=== PATIENT | female | born 1935 | race Caucasian/White ===

== ENCOUNTER 2024-05-15 06:44 | Day surgery (SDC) | payer MEDICARE, OTHER ==
[2024-05-15] VITALS (9 sets, daily range): BP systolic 109–156; BP diastolic 42–64; PULSE 52–82; RESP 10–12; TEMP 98.2; O2SAT 94–100
[~2024-05-15] VITALS: Ht 157.5 cm; Wt 66.9 kg
[2024-05-15] MEDS ORDERED: OMEG1CAP46 PO (07:42)
[2024-05-15] MEDS ORDERED: OXYB2.5T PO (07:42)
[2024-05-15] MEDS ORDERED: ASPI-611 PO (07:42)
[2024-05-15] MEDS ORDERED: AMLO5TAB16 PO (07:42)
[2024-05-15] MEDS ORDERED: CETI10TA14 PO (07:42)
[2024-05-15] MEDS ORDERED: VITA-288 PO (07:42)
[2024-05-15] MEDS ORDERED: CHOL50CA2 PO (07:42)
[2024-05-15] MEDS ORDERED: LEVO125T8 PO (07:42)
[2024-05-15] MEDS ORDERED: CYAN-34 PO (07:42)
[2024-05-15] MEDS ORDERED: MAGN250T11 PO (07:42)
[2024-05-15] MEDS ORDERED: FOLI0.4T14 PO (07:42)
[2024-05-15] MEDS ORDERED: ASCO1TAB13 PO (07:42)
[2024-05-15] MEDS ORDERED: CALC-723 PO (07:42)
[2024-05-15] MEDS ORDERED: CALC600T2 PO (07:42)
[2024-05-15] MEDS ORDERED: ESOM40CA PO (07:42)
[2024-05-15] MEDS ORDERED: LOSA100T58 PO (07:42)
[2024-05-15] MEDS ORDERED: VITA-268 PO (07:42)
[2024-05-15] MEDS ORDERED: FAMO40TA58 PO (07:42)
[2024-05-15 07:53] LABS: BASOPHILS % (AUTO) 0.6 % (0-1); EOSINOPHILS # (AUTO) 0.5 X10'3 (0-0.9); EOSINOPHILS % (AUTO) 9.1 % (0-6); HEMATOCRIT 38.5 % (35.0-45.0); HEMOGLOBIN 13.1 g/dl (12.0-16.0); LYMPHOCYTES # (AUTO) 1.5 X10'3 (1.1-4.8); LYMPHOCYTES % (AUTO) 25.1 % (21-51); MEAN CORPUSCULAR HEMOGLOBIN 29.9 PG (27.0-31.0); MEAN PLATELET VOLUME 8.6 FL (7.4-10.4); MONOCYTES # (AUTO) 0.7 X10'3 (0-0.9); MONOCYTES % (AUTO) 11.6 % (2-12); NEUTROPHILS # (AUTO) 3.2 X10'3 (1.8-7.7); NEUTROPHILS % (AUTO) 53.6 % (42-75); PLATELET COUNT 245 X10'3 (140-440); RED BLOOD COUNT 4.37 X10'6 (4.20-5.60); RED CELL DISTRIBUTION WIDTH 13.3 % (11.5-14.5); WHITE BLOOD COUNT 5.9 X10'3 (4.5-11.0)
[2024-05-15 08:01] LABS: PROTHROMBIN TIME 10.4 SECONDS (9.0-12.0)
[2024-05-15] MEDS: normal saline 1,000 ML IV SCH (08:03)
[2024-05-15] MEDS: sodium bicarbonate 1meq/ml syr 150 ML in dextrose 5%-water 1,000 ML IV ONE (08:03)
[2024-05-15] MEDS: diphenhydrAMINE 25mg capsule PO PRN (08:03)
[2024-05-15 08:42] LABS: ALBUMIN 4.1 G/DL (3.4-5.0); ANION GAP 10 (8-16); BLOOD UREA NITROGEN 29 MG/DL (7-18); CALCIUM 9.5 MG/DL (8.5-10.1); CHLORIDE 105 MMOL/L (99-107); CREATININE 1.21 MG/DL (0.40-0.90); GLUCOSE 115 MG/DL (70-104); MAGNESIUM 2.2 MG/DL (1.5-2.4); SODIUM 140 MMOL/L (135-145); TOTAL CARBON DIOXIDE 25.4 MMOL/L (24-32); eCRCL 26 ML/MIN; eGFR 42 ML/MIN
[2024-05-15] MEDS ORDERED: LIDOcaine 1% 30ml preserv. free vial ONE (08:52)
[2024-05-15] MEDS ORDERED: verapamil 2.5 mg/ml inj IV ONE (08:52)
[2024-05-15] MEDS ORDERED: midazolam 1 mg/ML 2ml injection ONE ×3 (08:52→10:33)
[2024-05-15] MEDS ORDERED: iohexol 350 MG/ML 50ML vial IV ONE (08:53)
[2024-05-15] MEDS ORDERED: heparin 1,000unit/ml 10ml vial 10 ML ONE (08:53)
[2024-05-15] MEDS ORDERED: fentaNYL/PF 50MCG/1 ML 2ML syringe ONE ×2 (08:53→10:34)
[2024-05-15] MEDS ORDERED: iohexol 350MG/ML 100ml bottle IV ONE (08:53)
[2024-05-15] MEDS ORDERED: nitroGLYCERIN 500mcg/5mL D5W 5 ML IV ONE (08:58)
[2024-05-15] MEDS ORDERED: HYDROcodone/acetaminophen 5mg/325mg tablet PO PRN (11:25)
[2024-05-15] MEDS ORDERED: ondansetron/PF 4mg/2ml inj IV PRN (11:25)
[2024-05-15] MEDS ORDERED: proCHLORperazine 10 MG/2 ml inj IV PRN (11:25)
[2024-05-15] MEDS ORDERED: HYDROcodone/acetaminophen 10/325mg tab PO PRN (11:25)
== END 2024-05-15 14:35 | disposition home or self-care (01) ==
LOC: SSTAY O 06:44
PROVIDERS: ATTEND Internal Medicine Cardiovascular Disease
DX: I35.0 Nonrheumatic aortic (valve) stenosis (principal); I25.10 Atherosclerotic heart disease of native coronary artery without angina pectoris; R94.31 Abnormal electrocardiogram [ECG] [EKG]; Z88.5 Allergy status to narcotic agent; Z88.8 Allergy status to other drugs, medicaments and biological substances
CPT/HCPCS: 36415; 80048; 83735; 85025; 85610; 93005; 93460; 93571; 99152; 99153; C1751; C1760; C1769; C1894; J1644; J2001; J2250; J3010; J3490; J7030; J7070; Q0163; Q9967; Z7610

== ENCOUNTER 2024-06-15 09:40 | Outpatient (CLI) | payer MEDICARE, OTHER ==
[~2024-06-15 09:40] MED LIST: AMLO5TAB16 PO; ASCO1TAB13 PO; ASPI-611 PO; CALC-723 PO; CALC600T2 PO; CETI10TA14 PO; CHOL50CA2 PO; CYAN-34 PO; ESOM40CA PO; FAMO40TA58 PO; FOLI0.4T14 PO; LEVO125T8 PO; LOSA100T58 PO; MAGN250T11 PO; OMEG1CAP46 PO; OXYB2.5T PO; VITA-268 PO; VITA-288 PO
[2024-06-15 10:22] LABS: BASOPHILS # (AUTO) 0.1 X10'3 (0-0.2); EOSINOPHILS # (AUTO) 0.4 X10'3 (0-0.9); EOSINOPHILS % (AUTO) 7.8 % (0-6); HEMATOCRIT 34.7 % (35.0-45.0); HEMOGLOBIN 11.6 g/dl (12.0-16.0); LYMPHOCYTES # (AUTO) 1.3 X10'3 (1.1-4.8); LYMPHOCYTES % (AUTO) 22.9 % (21-51); MEAN CORPUSCULAR HEMOGLOBIN 29.6 PG (27.0-31.0); MEAN CORPUSCULAR HGB CONC 33.6 g/dL (33.0-36.5); MEAN CORPUSCULAR VOLUME 88.2 FL (78-98); MEAN PLATELET VOLUME 8.3 FL (7.4-10.4); MONOCYTES # (AUTO) 0.6 X10'3 (0-0.9); MONOCYTES % (AUTO) 10.1 % (2-12); NEUTROPHILS # (AUTO) 3.3 X10'3 (1.8-7.7); NEUTROPHILS % (AUTO) 58.2 % (42-75); PLATELET COUNT 246 X10'3 (140-440); RED BLOOD COUNT 3.93 X10'6 (4.20-5.60); RED CELL DISTRIBUTION WIDTH 13.3 % (11.5-14.5); WHITE BLOOD COUNT 5.7 X10'3 (4.5-11.0)
[2024-06-15 10:34] LABS: APTT 25 SECONDS (22-32); PROTHROMBIN TIME 10.4 SECONDS (9.0-12.0)
[2024-06-15 10:45] LABS: ALANINE AMINOTRANSFERASE 20 U/L (12-78); ALBUMIN 3.7 G/DL (3.4-5.0); ALKALINE PHOSPHATASE 75 IU/L (46-116); ANION GAP 6 (8-16); ASPARTATE AMINO TRANSFERASE 13 U/L (10-37); BILIRUBIN,TOTAL 0.3 MG/DL (0.1-1.0); BLOOD UREA NITROGEN 31 MG/DL (7-18); BUN/CREATININE RATIO 30.4 (10.0-20.0); CALCIUM 9.4 MG/DL (8.5-10.1); CHLORIDE 105 MMOL/L (99-107); CREATININE 1.02 MG/DL (0.40-0.90); GLUCOSE 101 MG/DL (70-104); POTASSIUM 4.1 MMOL/L (3.5-5.1); PRO BRAIN NATRIURETIC PEPTIDE 98 PG/ML (0-450); SODIUM 140 MMOL/L (135-145); TOTAL CARBON DIOXIDE 28.6 MMOL/L (24-32); TOTAL PROTEIN 7.4 G/DL (6.4-8.2); eGFR 51 ML/MIN
[2024-06-15] MEDS ORDERED: IODIXANOL 320 MG/ML INFUS..BTL 100ML IV ONE (12:18)
== END 2024-06-15 23:59 | disposition home or self-care (01) ==
LOC: RAD 09:40
PROVIDERS: ATTEND Internal Medicine Cardiovascular Disease
DX: I08.0 Rheumatic disorders of both mitral and aortic valves (principal); K44.9 Diaphragmatic hernia without obstruction or gangrene; Q23.81 Bicuspid aortic valve; K57.30 Diverticulosis of large intestine without perforation or abscess without bleeding; M43.8X6 Other specified deforming dorsopathies, lumbar region; M47.816 Spondylosis without myelopathy or radiculopathy, lumbar region; I65.29 Occlusion and stenosis of unspecified carotid artery; R06.02 Shortness of breath
CPT/HCPCS: 36415; 71046; 71275; 74174; 75572; 80053; 83880; 85025; 85610; 85730; C8924; Q9967; 93308

== ENCOUNTER 2024-11-05 06:10 | Outpatient (CLI) | payer MEDICARE, OTHER ==
[~2024-11-05 06:10] MED LIST changes: -ASCO1TAB13 PO; +ASCO1TAB39 PO; -CALC-723 PO; +CALC-729 PO; -CALC600T2 PO; -ESOM40CA PO; -FAMO40TA58 PO; -LEVO125T8 PO; +LEVO150T PO; +MELA3CAP2 PO; -OMEG1CAP46 PO; +PANT-47 PO; -VITA-268 PO; +VITA1CAP PO
== END 2024-11-05 23:59 | disposition home or self-care (01) ==
LOC: MRI02 06:10
PROVIDERS: ATTEND Family Medicine
DX: M51.15 Intervertebral disc disorders with radiculopathy, thoracolumbar region (principal); M54.50 Low back pain, unspecified; M50.33 Other cervical disc degeneration, cervicothoracic region; M43.17 Spondylolisthesis, lumbosacral region; M43.8X6 Other specified deforming dorsopathies, lumbar region; M48.05 Spinal stenosis, thoracolumbar region; M48.061 Spinal stenosis, lumbar region without neurogenic claudication; M47.27 Other spondylosis with radiculopathy, lumbosacral region
CPT/HCPCS: 72148

== ENCOUNTER 2025-01-06 09:31 | Outpatient (CLI) | payer MEDICARE, OTHER ==
--- NOTE | 2025-01-06 16:23 | RADIOLOGY REPORT ---
PROCEDURE: MR MRI HEAD INDICATION: HEADACHE EXAM DATE: 01/06/2025 09:45 AM COMPARISON: None TECHNIQUE: MRI of the brain without intravenous contrast. FINDINGS: Diffusion weighted images of the brain demonstrate no evidence of acute infarction. There is no evidence of acute intracranial hemorrhage, extra-axial collection, mass effect, midline s hift, herniation or hydrocephalus. [id number] cerebral atrophy. Mild changes of chronic microvascular ischemic disease. There are no signal abnormalities on the susceptibility weighted sequences. The major vascular flow voids are present. The visualized paranasal sinuses and mastoid air cells are clear. The surrounding soft tissues and o sseous structures are unremarkable. IMPRESSION: 1. No evidence of acute infarction, intracranial hemorrhage, mass effect or hydrocephalus. Mild-to-mo derate cerebral atrophy. Mild changes of chronic microvascular ischemic disease. HS:Y
== END 2025-01-06 23:59 | disposition home or self-care (01) ==
LOC: MRI02 09:31
PROVIDERS: ATTEND Family Medicine
DX: I67.82 Cerebral ischemia (principal); R51.0 Headache with orthostatic component, not elsewhere classified; G31.9 Degenerative disease of nervous system, unspecified
CPT/HCPCS: 70551